=== PATIENT | female | born 1965 | race African-American/Black ===

== ENCOUNTER 2017-06-03 23:23 | Emergency (ER) | payer OTHER ==
[~2017-06-03 23:23] MED LIST: CIPR500T4 PO; FISH100020 OR; LISI10TA PO; METR-1 PO; OMEG500C OR; OXYC-360 PO; PROM25SU8 PO; TAB-TAB PO; VITA500015 OR; WAL-10TA2 PO
[2017-06-03 23:26] VITALS: BP 136/92; PULSE 101; RESP 16; TEMP 99; O2SAT 95
[2017-06-04] MEDS ORDERED: LISI-519 PO (02:01)
[2017-06-04] MEDS ORDERED: HYDR25TA5 PO (02:01)
[2017-06-04] MEDS ORDERED: ATOR10TA15 PO (02:01)
[2017-06-04] MEDS ORDERED: METF500T PO (02:01)
--- NOTE | 2017-06-04 02:54 | PD ---
HPI Chief Complaint: Abdominal Pain Time Seen by Provider: 02:54 Travel History International Travel<30 days: No Contact w/Intl Traveler<30days: No Traveled to known affect area: No History of Present Illness HPI 51-year-old female came to the emergency room with history of left lower quadrant abdominal pain. Patient says this has been going on for past 4-5 days but last night was really the worst. She has had loss of appetite. Pain is worse when she is walking or moving. No history of nausea or vomiting. She has been getting some chills. No history of diarrhea or blood in her stools. She has had history of diverticulitis in the past. Patient was slightly tachycardic in triage. [facility] Past Medical History Narrative Medical List of her past medical, surgical, social and family history is reviewed from the nursing note. Diabetes: Yes Patient Takes Glucophage: Yes Diminished Hearing: No Diverticulitis: Yes Hypertension: Yes ?: Not Past Surgical History Hysterectomy: Yes Other Surgery: Yes (COLONOSCOPY) Social History Alcohol Use: No Tobacco Use: No Substance Use: No Allergies-Medications (Allergen,Severity, Reaction): Coded Allergies: No Known Allergies (Verified , 06/04/17) Comments No known drug allergies. Reported Meds & Prescriptions Reported Meds & Active Scripts Active Flagyl (Metronidazole) 500 Mg Tab 500 Mg PO TID 10 Days Ciprofloxacin (Ciprofloxacin HCl) 500 Mg Tab 500 Mg PO BID 10 Days Reported Metformin (Metformin HCl) 500 Mg Tab 500 Mg PO DAILY With a meal Atorvastatin (Atorvastatin Calcium) 10 Mg Tab 10 Mg PO HS Hydrochlorothiazide 25 Mg Tab 25 Mg PO DAILY Lisinopril 5 Mg Tab 5 Mg PO DAILY Narrative Medication List of her home medications reviewed from the nursing note. Review of Systems Except as stated in HPI: all other systems reviewed are Neg Physical Exam Narrative GENERAL: Awake, alert, moderate distress SKIN: Focused skin assessment warm/dry. HEAD: Atraumatic. Normocephalic. EYES: Pupils equal and round. No scleral icterus. No injection or drainage. ENT: No nasal bleeding or discharge. Mucous membranes pink and moist. NECK: Trachea midline. No JVD. CARDIOVASCULAR: Regular rate and rhythm. No murmur appreciated. RESPIRATORY: No accessory muscle use. Clear to auscultation. Breath sounds equal bilaterally. GASTROINTESTINAL: Abdomen soft, left lower quadrant tenderness. Nondistended. Hepatic and splenic margins not palpable. MUSCULOSKELETAL: No obvious deformities. No clubbing. No cyanosis. No edema. NEUROLOGICAL: Awake and alert. No obvious cranial nerve deficits. Motor grossly within normal limits. Normal speech. PSYCHIATRIC: Appropriate mood and affect; insight and judgment normal. Data Data Last Documented VS Vital Signs Date Time Temp Pulse Resp B/P Pulse Ox O2 Delivery O2 Flow Rate FiO2 06/04/17 06:28 16 06/03/17 23:26 99.0 101 136/92 95 Room Air Orders Complete Blood Count With Diff (06/04/17 02:56) Comprehensive Metabolic Panel (06/04/17 02:56) Urinalysis - C+S If Indicated (06/04/17 02:56) Ct Abd/Pel W/O Iv Contrast (06/04/17 02:56) Iv Access Insert/Monitor (06/04/17 02:56) Ecg Monitoring (06/04/17 02:56) Oximetry (06/04/17 02:56) Ciprofloxacin 400 Mg Premix (Cipro 400 M (06/04/17 03:00) Sodium Chlor 0.9% 1000 Ml Inj (Ns 1000 M (06/04/17 02:56) Sodium Chloride 0.9% Flush (Ns Flush) (06/04/17 03:00) Ketorolac Inj (Toradol Inj) (06/04/17 03:00) Metronidazole 500 Mg Inj (Flagyl 500 Mg (06/04/17 03:00) Blood Culture (06/04/17 03:54) Urine Culture (06/04/17 03:30) Labs Laboratory Tests Test 06/04/17 06/04/17 03:30 03:45 Urine Color YELLOW Urine Turbidity HAZY Urine pH 5.5 Urine Specific [place] 1.022 Urine Protein TRACE mg/dL Urine Glucose (UA) NEG mg/dL Urine Ketones NEG mg/dL Urine Occult Blood NEG Urine Nitrite NEG Urine Bilirubin NEG Urine Urobilinogen LESS THAN 2.0 MG/DL Urine Leukocyte Esterase LARGE Urine RBC LESS THAN 1 /hpf Urine WBC 14 /hpf Urine Squamous Epithelial 3 /hpf Cells Urine Transitional Epithelial <1 /hpf Cells Urine Bacteria MANY /hpf Urine Mucus FEW /lpf Microscopic Urinalysis Comment CULTURE INDICATED White Blood Count 11.0 TH/MM3 Red Blood Count 4.97 MIL/MM3 Hemoglobin 13.5 GM/DL Hematocrit 40.3 % Mean Corpuscular Volume 81.2 FL Mean Corpuscular Hemoglobin 27.1 PG Mean Corpuscular Hemoglobin 33.3 % Concent Red Cell Distribution Width 15.1 % Platelet Count 383 TH/MM3 Mean Platelet Volume 7.5 FL Neutrophils (%) (Auto) 74.1 % Lymphocytes (%) (Auto) 19.7 % Monocytes (%) (Auto) 5.2 % Eosinophils (%) (Auto) 0.4 % Basophils (%) (Auto) 0.6 % Neutrophils # (Auto) 8.1 TH/MM3 Lymphocytes # (Auto) 2.2 TH/MM3 Monocytes # (Auto) 0.6 TH/MM3 Eosinophils # (Auto) 0.0 TH/MM3 Basophils # (Auto) 0.1 TH/MM3 CBC Comment DIFF FINAL Differential Comment Sodium Level 140 MEQ/L Potassium Level 3.7 MEQ/L Chloride Level 103 MEQ/L Carbon Dioxide Level 30.7 MEQ/L Anion Gap 6 MEQ/L Blood Urea Nitrogen 12 MG/DL Creatinine 0.86 MG/DL Estimat Glomerular Filtration 85 ML/MIN Rate Random Glucose 103 MG/DL Calcium Level 9.2 MG/DL Total Bilirubin 0.5 MG/DL Aspartate Amino Transf 7 U/L (AST/SGOT) Alanine Aminotransferase 16 U/L (ALT/SGPT) Alkaline Phosphatase 93 U/L Total Protein 8.4 GM/DL Albumin 3.8 GM/DL [facility] Medical Decision Making Medical Screen Exam Complete: Yes Emergency Medical Condition: Yes Medical Record Reviewed: Yes Differential Diagnosis Acute diverticulitis, UTI, abdominal pain NOS Narrative Course 4:[address] scan shows acute diverticulitis without any abscess or perforation. Test results are within acceptable limits. Patient was given a dose of Cipro and Flagyl. UA suggestive of UTI. However patient will be going home on Cipro and Flagyl as well. I'm comfortable discharging her home at this point. Procedures EKG Prior to Arrival: No Diagnosis Primary Impression: Acute diverticulitis Referrals: Primary Care Physician 2 days Additional Instructions: Please return to the ER if the condition worsens or any other new concerns like high fever, vomiting etc. Take the medication as per the prescription direction. Clear liquid diet for the next 4-48 hours. Follow-up with your primary care in couple days. Med/Other Pt SpecificInfo: Prescription(s) given Scripts Metronidazole (Flagyl)500 Mg [id number] Mg PO TID 10 Days Ref 0 Prov:Linwood Linares MD 06/04/17 Ciprofloxacin 500 Mg [id number] Mg PO BID 10 Days Ref 0 Prov:Linwood Linares MD 06/04/17 Disposition: 01 DISCHARGE HOME Condition: Stable Linwood Linares MD Jun 04, 2017 02:54
[2017-06-04] MEDS ORDERED: SODIUM CHLOR 0.9% 1000 ML INJ 1,000 ML IV SCH (02:56)
[2017-06-04] MEDS ORDERED: SODIUM CHLORIDE 0.9% FLUSH 10 ML FLUSH IV FLUSH PRN (03:00)
[2017-06-04] MEDS ORDERED: KETOROLAC TROMETHAMINE 30 MG/ML (IVP) VIAL IVP ONE (03:00)
[2017-06-04] MEDS ORDERED: metroNIDAZOLE 500 MG INJ 100 ML IV ONE (03:00)
[2017-06-04] MEDS ORDERED: CIPROFLOXACIN 400 MG PREMIX 200 ML IV ONE (03:00)
--- NOTE | 2017-06-04 03:35 | RADRPT ---
EXAM DATE/TIME: 06/04/2017 03:19 [facility] COMPARISON: No previous studies available for comparison. INDICATIONS : Lower abdominal pain with nausea. ORAL CONTRAST: No oral contrast ingested. RADIATION DOSE: 27.07 CTDIvol (mGy) MEDICAL HISTORY : Hypertension. Diverticulitis. Diabetes mellitus type 2. SURGICAL HISTORY : Hysterectomy. ENCOUNTER: Initial ACUITY: 1 day PAIN SCALE: 5/10 LOCATION: Bilateral abdomen TECHNIQUE: Volumetric scanning of the abdomen and pelvis was performed. Using automated exposure control and ad justment of the mA and/or kV according to patient size, radiation dose was kept as low as reasonably achievable to obtain optimal diagnostic quality images. DICOM format image data is available electro nically for review and comparison. FINDINGS: LOWER LUNGS: The visualized lower lungs are clear. LIVER: Homogeneous density without lesion. There is no dilation of the biliary tree. No calcified gallston es. SPLEEN: Normal size without lesion. PANCREAS: Within normal limits. KIDNEYS: Normal in size and shape. There is no mass, stone, or hydronephrosis. ADRENAL GLANDS: Within normal limits. VASCULAR: There is no aortic aneurysm. BOWEL/MESENTERY: There is significant inflammation around the sigmoid colon without drainable fluid collection or absc ess. There numerous adjacent diverticula consistent with diverticulitis. ABDOMINAL WALL: Within normal limits. RETROPERITONEUM: There is no lymphadenopathy. BLADDER: No wall thickening or mass. REPRODUCTIVE: Within normal limits. INGUINAL: There is no lymphadenopathy or hernia. MUSCULOSKELETAL: Within normal limits for patient age. CONCLUSION: Changes consistent with diverticulitis of the sigmoid colon without evidence of obstruction ,abscess, or mass. Michael White MD on June 04, 2017 at 3:33 Board Certified Radiologist. This report was verified electronically.
[2017-06-04 04:07] LABS: AUTOMATED NEUTROPHIL # 8.1 TH/MM3 (1.8-7.7); BASOPHIL # 0.1 TH/MM3 (0-0.2); BASOPHIL % 0.6 % (0.0-2.0); EOSINOPHIL % 0.4 % (0.0-4.0); HEMATOCRIT 40.3 % (35.0-46.0); HEMO FLAGS DIFF FINAL; LYMPH % 19.7 % (9.0-44.0); LYMPHOCYTE # 2.2 TH/MM3 (1.0-4.8); MEAN CELL VOLUME 81.2 FL (80.0-100.0); MEAN CORPUSCULAR HEMOGLOBIN 27.1 PG (27.0-34.0); MEAN CORPUSCULAR HGB CONC 33.3 % (32.0-36.0); MONO % 5.2 % (0.0-8.0); NEUT % 74.1 % (16.0-70.0); PLATELET COUNT 383 TH/MM3 (150-450); RED BLOOD COUNT 4.97 MIL/MM3 (4.00-5.30); RED CELL DISTRIBUTION WIDTH 15.1 % (11.6-17.2)
[2017-06-04 04:16] LABS: BACTERIA, URINE MANY /hpf; BLOOD, URINE NEG (NEG); GLUCOSE,URINE NEG (NEG); KETONE, URINE NEG (NEG); MUCUS URINE FEW /lpf (OCC); NITRITE,URINE NEG (NEG); PH, URINE 5.5 (5.0-8.5); SQUAMOUS EPITHELIAL CELL URINE 3 /hpf (0-5); TRANSITIONAL EPI CELLS, URINE <1 /hpf; URINE COLOR YELLOW (YELLW/STRAW)
[2017-06-04 04:17] LABS: COMMENT (UR) CULTURE INDICATED; CULTURE IF INDICATED CULTURE INDICATED
[2017-06-04 04:38] LABS: ALT (GPT) 16 U/L (10-53); ANION GAP 6 MEQ/L (5-15); AST (GOT) 7 U/L (15-37); BICARBONATE 30.7 MEQ/L (21.0-32.0); BLOOD UREA NITROGEN 12 MG/DL (7-18); CHLORIDE 103 MEQ/L (98-107); GLOMERULAR FILTRATION RATE 85 ML/MIN (>89); POTASSIUM 3.7 MEQ/L (3.5-5.1); SODIUM (NA) 140 MEQ/L (136-145)
[2017-06-04 04:40] LABS: ALKALINE PHOSPHATASE 93 U/L (45-117); TOTAL BILIRUBIN ADULT 0.5 MG/DL (0.2-1.0)
[2017-06-04] MEDS ORDERED: CIPR500T2 PO (04:42)
[2017-06-04] MEDS ORDERED: METR-1 PO (04:42)
[2017-06-04 06:28] VITALS: RESP 16
== END 2017-06-04 06:33 | disposition home or self-care (01) ==
LOC: NEPC 23:23
DX: K57.92 Diverticulitis of intestine, part unspecified, without perforation or abscess without bleeding (principal); E11.9 Type 2 diabetes mellitus without complications; I10 Essential (primary) hypertension; Z79.899 Other long term (current) drug therapy
CPT/HCPCS: 74176; 80053; 81001; 85025; 87040; 87086; 96361; 96365; 96375; 99285; J0744; J1885; J7030

== ENCOUNTER 2018-03-20 00:09 | Emergency (ER) | payer OTHER ==
[~2018-03-20] VITALS: Ht 160 cm; Wt 105.0 kg
[~2018-03-20 00:09] MED LIST changes: +ATOR10TA15 PO; +CIPR500T2 PO; -CIPR500T4 PO; -FISH100020 OR; +HYDR25TA5 PO; +LISI-519 PO; -LISI10TA PO; +METF500T PO; -OMEG500C OR; -OXYC-360 PO; -PROM25SU8 PO; -TAB-TAB PO; -VITA500015 OR; -WAL-10TA2 PO
[2018-03-20 00:16] VITALS: BP 158/90; PULSE 99; RESP 16; TEMP 97.8; O2SAT 98
--- NOTE | 2018-03-20 00:50 | RADRPT ---
EXAM DATE/TIME: 03/20/2018 00:33 [facility] COMPARISON: No previous studies available for comparison. INDICATIONS : Left shoulder pain, no known trauma. MEDICAL HISTORY : None. SURGICAL HISTORY : None. ENCOUNTER: Initial ACUITY: 1 day PAIN SCORE: 8/10 LOCATION: Left shoulder FINDINGS: Two view examination of the left shoulder demonstrates no evidence of fracture or dislocation. The g lenohumeral and acromioclavicular joints are maintained. Bony mineralization is normal. CONCLUSION: Normal examination for a patient of this age. Blue Chinchilla MD on March 20, 2018 at 0:48 Board Certified Radiologist. This report was verified electronically.
[2018-03-20] MEDS ORDERED: MOBI15TA PO (00:59)
[2018-03-20] MEDS ORDERED: NORC5TAB PO (00:59)
--- NOTE | 2018-03-20 00:59 | PD ---
HPI Chief Complaint: Injury Time Seen by Provider: 00:49 Travel History International Travel<30 days: No Contact w/Intl Traveler<30days: No Traveled to known affect area: No History of Present Illness HPI 52-year-old female presents emergency department for evaluation of left shoulder pain. Pain began this morning. She states it is progressed throughout the day and she is unable to move the shoulder without significant pain. Pain is exacerbated with abduction. She denies any injury. Pain is constant, ache, moderate severity. Denies fever chills. Denies any alterations in sensation. She has no other symptoms to report. PFSH Past Medical History Diabetes: Yes Patient Takes Glucophage: Yes (03/19/2018 0830) Diminished Hearing: No Diverticulitis: Yes Hypertension: Yes Tetanus Vaccination: < 5 Years Influenza Vaccination: No ?: Not Past Surgical History Hysterectomy: Yes Other Surgery: Yes (COLONOSCOPY) Social History Alcohol Use: No Tobacco Use: No Substance Use: No Allergies-Medications (Allergen,Severity, Reaction): Coded Allergies: No Known Allergies (Verified Adverse Reaction, Unknown, 03/20/18) Reported Meds & Prescriptions Reported Meds & Active Scripts Active [place] (Hydrocodone-Acetaminophen) 5 Mg-325 Mg Tab 1 Tab PO Q6H PRN Mobic (Meloxicam) 15 Mg Tab 15 Mg PO DAILY PRN Flagyl (Metronidazole) 500 Mg Tab 500 Mg PO TID 10 Days Ciprofloxacin (Ciprofloxacin HCl) 500 Mg Tab 500 Mg PO BID 10 Days Reported Metformin (Metformin HCl) 500 Mg Tab 500 Mg PO DAILY With a meal Atorvastatin (Atorvastatin Calcium) 10 Mg Tab 10 Mg PO HS Hydrochlorothiazide 25 Mg Tab 25 Mg PO DAILY Lisinopril 5 Mg Tab 5 Mg PO DAILY Review of Systems Except as stated in HPI: all other systems reviewed are Neg Physical Exam Narrative GENERAL: Well-nourished, well-developed female patient in no acute distress. SKIN: Focused skin assessment warm/dry. HEAD: Normocephalic. EYES: No scleral icterus. No injection or drainage. NECK: Supple, trachea midline. No JVD or lymphadenopathy. CARDIOVASCULAR: Regular rate and rhythm without murmurs, gallops, or rubs. RESPIRATORY: Breath sounds equal bilaterally. No accessory muscle use. GASTROINTESTINAL: Abdomen soft, non-tender, nondistended. MUSCULOSKELETAL: No cyanosis, or edema. Tenderness elicited palpation over the left anterior shoulder. No deformity. Patient is reluctant to abduct or raise the arm forward. Distal pulses are palpable. Cap refills within normal limits. BACK: Nontender without obvious deformity. No CVA tenderness. Data Data Last Documented VS Vital Signs Date Time Temp Pulse Resp B/P (MAP) Pulse Ox O2 Delivery O2 Flow Rate FiO2 03/20/18 00:16 97.8 99 16 158/90 (112) 98 Orders Orders Ice/Cold Pack (03/20/18 00:20) Shoulder, Limited(2vws) (03/20/18 00:20) Splint Or Brace Apply/Monitor (03/20/18 00:56) Ketorolac Inj (Toradol Inj) (03/20/18 01:00) Ed Discharge Order (03/20/18 00:56) Sling Cradle Arm (03/20/18 ) MDM Medical Decision Making Medical Screen Exam Complete: Yes Emergency Medical Condition: Yes Medical Record Reviewed: Yes Differential Diagnosis Tendinitis versus bursitis versus sprain versus strain versus osteoarthritis Narrative Course 52-year-old female presents emergency department for evaluation left shoulder pain. There is no obvious deformity. No erythema or edema. Patient is treated for pain. Last Impressions Shoulder X-Ray 03/20/18 0020 Signed Impressions: Service Date/Time: Tuesday, March 20, 2018 00:33 - CONCLUSION: Normal examination for a patient of this age. Blue Chinchilla MD Findings are discussed with the patient. She is placed in a sling and counseled on range of motion exercises. She is encouraged to follow-up with orthopedically impaired teacher. Outpatient MRI may be warranted. She agrees to return immediately with acute worsening symptoms. Diagnosis Primary Impression: Shoulder pain, left Qualified Codes: M25.512 - Pain in left shoulder Referrals: Orthopaedic Surgeon Primary Care Physician Patient Instructions: Exercises for Shoulder Abduction and Adduction (ED), Exercises for Shoulder Flexion and Extension (ED), General Instructions Additional Instructions: Ice and/or warm moist heat may help to alleviate symptoms Follow-up with a primary care provider Daily range of motion exercises like we discussed Outpatient MRI may be warranted if symptoms persist Return immediately with acute worsening symptoms Med/Other Pt SpecificInfo: Prescription(s) given Scripts Hydrocodone-Acetaminophen (Man[place]) 5 Mg-325 Mg Tab 1 TAB PO Q6H Y for PAIN GREATER THAN 6, #6 TAB 0 Refills Prov: Vinita Jiménez 03/20/18 Meloxicam (Mobic) 15 Mg Tab 15 MG PO DAILY Y for PAIN SCALE 1 TO 10, #14 TAB 0 Refills Prov: Vinita Jiménze 03/20/18 Disposition: 01 DISCHARGE HOME Condition: Stable Vinita Jiménez Mar 20, 2018 00:59
[2018-03-20] MEDS ORDERED: KETOROLAC TROMETHAMINE 60 MG/2 ML (IM) VIAL IM ONE (01:00)
== END 2018-03-20 01:16 | disposition home or self-care (01) ==
LOC: NEPD 00:09
DX: M25.512 Pain in left shoulder (principal); E11.9 Type 2 diabetes mellitus without complications; I10 Essential (primary) hypertension
CPT/HCPCS: 73030; 96372; 99283; J1885